=== PATIENT | male | born 1990 | race Caucasian/White ===

== ENCOUNTER 2017-04-06 17:48 | Emergency (ER) | payer SELFPAY ==
[2017-04-06 17:50] VITALS: BMI 32.1
[2017-04-06 17:52] VITALS: BP 158/88; PULSE 81; RESP 19; TEMP 98; O2SAT 100
--- NOTE | 2017-04-06 17:59 | ED PDOC ---
Arrival/HPI - General Chief Complaint: Trauma Time Seen by Provider: 04/06/17 17:53 Historian: Patient - History of Present Illness Narrative History of Present Illness (Text): 04/06/17 17:56 27yo male present with complaint of left shoulder and knee pain s/p trauma over a week ago. States he fell, while playing soccer over a week ago and injured his knee and shoulder. states he took tylnol without relieve. Came to ED for the persistent pain. Denies any other complaint. Past Medical History - Provider Review Nursing Documentation Reviewed: Yes - Infectious Disease Hx of Infectious Diseases: None - Tetanus Immunization Tetanus Immunization: Up to Date - Past Medical History Past Medical History: No Previous - Psychiatric Hx Depression: No Hx Emotional Abuse: No Hx Physical Abuse: No Hx Substance Use: No - Past Surgical History Past Surgical History: No Previous - Surgical History Hx Appendectomy: Yes - Anesthesia Hx Anesthesia: Yes Hx Anesthesia Reactions: No - Suicidal Assessment Feels Threatened In Home Enviroment: No Family/Social History - Physician Review Nursing Documentation Reviewed: Yes Family/Social History: Unknown Family HX Smoking Status: Never Smoked Hx Alcohol Use: No Hx Substance Use: No Hx Substance Use Treatment: No Allergies/Home Meds Allergies/Adverse Reactions: Allergies No Known Allergies Allergy (Verified 04/06/17 17:50) Review of Systems - Physician Review All systems were reviewed & negative as marked: Yes - Review of Systems Constitutional: Normal Eyes: Normal ENT: Normal Respiratory: Normal Cardiovascular: Normal Gastrointestinal: Normal Genitourinary Male: Normal Musculoskeletal: Arthralgias (LEft shoulder and knee) Skin: Normal Neurological: Normal Endocrine: Normal Hemo/Lymphatic: Normal Psychiatric: Normal Physical Exam Vital Signs Reviewed: Yes Vital Signs Temp Pulse Resp BP Pulse Ox 04/06/17 17:51 98.0 F 81 19 158/88 H 100 Temperature: Afebrile Blood Pressure: Normal Pulse: Regular Respiratory Rate: Normal Appearance: Positive for: Well-Appearing, Non-Toxic, Comfortable Pain Distress: None Mental Status: Positive for: Alert and Oriented X 3 - Systems Exam Head: Present: Atraumatic, Normocephalic Pupils: Present: PERRL Extroacular Muscles: Present: EOMI Conjunctiva: Present: Normal Mouth: Present: Moist Mucous Membranes Neck: Present: Normal Range of Motion Respiratory/Chest: Present: Clear to Auscultation, Good Air Exchange. No: Respiratory Distress, Accessory Muscle Use Cardiovascular: Present: Regular Rate and Rhythm, Normal S1, S2. No: Murmurs Abdomen: Present: Normal Bowel Sounds. No: Tenderness, Distention, Peritoneal Signs Back: Present: Normal Inspection Upper Extremity: Present: Normal ROM (With pain on full abduction of left shoulder up to 120degree), Tenderness (Proximal left shoulder and medial aspect of left knee), Neurovascularly Intact. No: Cyanosis, Edema, Swelling, Erythema , Temperature Abnormalties, Capillary Refill < 2s, Deformity Lower Extremity: Present: Normal Inspection. No: Edema Neurological: Present: GCS=15, CN II-XII Intact, Speech Normal Skin: Present: Warm, Dry, Normal Color. No: Rashes Psychiatric: Present: Alert, Oriented x 3, Normal Insight, Normal Concentration Medical Decision Making ED Course and Treatment: 04/06/17 18:37 Left knee/shoulder xray - No acute finding Result was DW the pt. He was ambulatory with steady gait in ED. Referred to ortho. Rx of Ibuprofen given. TRT ED for any new symptoms. - RAD Interpretation Radiology Orders: 04/06/17 17:53 KNEE WITH PATELLA LEFT 3 VIEW [RAD] Stat 04/06/17 17:56 SHOULDER LEFT [RAD] Stat - Medication Orders Current Medication Orders: Discontinued Medications Ketorolac Tromethamine (Toradol) 60 mg IM STAT STA Stop: 04/06/17 17:57 Last Admin: 04/06/17 18:08 Dose: 60 mg Disposition/Present on Arrival - Present on Arrival Any Indicators Present on Arrival: No History of DVT/PE: No History of Uncontrolled Diabetes: No Urinary Catheter: No History of Decub. Ulcer: No History Surgical Site Infection Following: None - Disposition Have Diagnosis and Disposition been Completed?: Yes Diagnosis: Knee sprain, Shoulder pain Disposition: HOME/ ROUTINE Disposition Time: 18:35 Patient Plan: Discharge Patient Problems: Current Active Problems Problem Status Onset Knee sprain Acute Shoulder pain Acute Condition: STABLE Discharge Instructions (ExitCare): Knee Sprain (ED), Shoulder Sprain (ED) Additional Instructions: Follow up with orthopedist Return to ED for any new symptoms Prescriptions: Ibuprofen [Motrin Tab] 600 mg PO Q6 #20 tab Referrals: Herman Tesfaye MD [Staff Provider] - Follow up with primary
--- NOTE | 2017-04-07 10:24 | RAD ---
PROCEDURE: Left Knee Radiographs. HISTORY: Pain. COMPARISON: None. FINDINGS: BONES: Normal. No fracture. JOINTS: Normal. No osteoarthritis. JOINT EFFUSION: None. OTHER FINDINGS: None. IMPRESSION: Normal radiographs of the left knee.
--- NOTE | 2017-04-07 10:49 | RAD ---
PROCEDURE: Radiographs of the Left Shoulder HISTORY: shoulder pain s/p trauma COMPARISON: No prior. FINDINGS: BONES: Normal. No fracture. JOINTS: Normal. Glenohumeral and acromioclavicular joints preserved. No osteoarthritis. SOFT TISSUES: Normal. OTHER FINDINGS: None. IMPRESSION: Normal radiographs of the left shoulder.
== END 2017-04-06 18:45 | disposition home or self-care (01) ==
LOC: ED 17:48
DX: S83.92XA Sprain of unspecified site of left knee, initial encounter (principal); W18.39XA Other fall on same level, initial encounter; Y93.66 Activity, soccer; Y92.39 Other specified sports and athletic area as the place of occurrence of the external cause; M25.512 Pain in left shoulder
CPT/HCPCS: 73030; 73562; 96372; 99284; J1885

== ENCOUNTER 2019-02-12 10:49 | Emergency (ER) | payer MEDICAID ==
[2019-02-12 10:50] VITALS: BMI 32.1
--- NOTE | 2019-02-12 12:32 | ED PDOC ---
Arrival/HPI - General Chief Complaint: Abdominal Pain Time Seen by Provider: 02/12/19 12:03 Historian: Patient - History of Present Illness Narrative History of Present Illness (Text): 02/12/19 12:27 29 year old male, whose past medical history includes appendectomy, who presents to the ED for right upper abdominal pain since Saturday. Patient reports his appendectomy was 5-6 years ago. Patient notes associated right shoulder pain, but denies any chest pain, shortness of breath, headache, fever, chills, cough, nausea, vomiting, diarrhea, dizziness or lightheadedness or any other complaints. Time/Duration: 24 hours Symptom Onset: Gradual Symptom Course: Unchanged Activities at Onset: Light Context: Home Past Medical History - Provider Review Nursing Documentation Reviewed: Yes - Infectious Disease Hx of Infectious Diseases: None - Tetanus Immunization Tetanus Immunization: Up to Date - Past Medical History Past Medical History: No Previous - Psychiatric Hx Depression: No Hx Emotional Abuse: No Hx Physical Abuse: No Hx Substance Use: No - Past Surgical History Past Surgical History: No Previous - Surgical History Hx Appendectomy: Yes - Anesthesia Hx Anesthesia: Yes Hx Anesthesia Reactions: No Hx Malignant Hyperthermia: No - Suicidal Assessment Feels Threatened In Home Enviroment: No Family/Social History - Physician Review Nursing Documentation Reviewed: Yes Family/Social History: Unknown Family HX Smoking Status: Never Smoked Hx Alcohol Use: No Hx Substance Use: No Hx Substance Use Treatment: No Allergies/Home Meds Allergies/Adverse Reactions: Allergies No Known Allergies Allergy (Verified 02/12/19 11:36) Home Medications: Home Meds Medication Instructions Recorded Confirmed No Known Home Med 02/12/19 02/12/19 Review of Systems - Physician Review All systems were reviewed & negative as marked: Yes - Review of Systems Constitutional: absent: Fevers Eyes: absent: Vision Changes ENT: absent: Hearing Changes, Sore Throat, Rhinorrhea Respiratory: absent: SOB, Cough Cardiovascular: absent: Chest Pain Gastrointestinal: Abdominal Pain. absent: Diarrhea, Nausea, Vomiting Genitourinary Male: absent: Dysuria, Hematuria, Urinary Output Changes Musculoskeletal: Other (Right shoulder pain). absent: Back Pain Skin: absent: Rash, Pruritis, Skin Lesions Neurological: absent: Headache, Dizziness Endocrine: absent: Diaphoresis Hemo/Lymphatic: absent: Adenopathy Psychiatric: absent: Anxiety, Depression Physical Exam - Physical Exam Narrative Physical Exam (Text): 02/12/19 12:33 Gen: VS reviewed, alert, well developed, well nourished, nontoxic, mild distress ENT: normal pharynx Eye: EOMI, PERRL Neck: no JVD, supple, no adenopathy CV: regular rate, regular rhythm, no rubs, no murmur, no gallops, S1, S2, pulses, equal and strong Pulm: no distress, clear to auscultation, no wheeze, no rhonchi, breath sounds equal, no rales Abd: soft, mild RUQ tenderness, no guarding, no rebound, no rigidity, normal bowel sounds Ext: no edema Skin: good color, no rash, no cyanosis Psych: responds appropriately to questions, normal affect Neuro: oriented x 3, CN2-12 intact grossly, motor intact, sensation intact Vital Signs Temp Pulse Resp BP Pulse Ox 02/12/19 11:33 98.9 F 65 18 141/90 98 Temperature: Afebrile Blood Pressure: Normal Pulse: Regular Respiratory Rate: Normal Appearance: Positive for: Well-Appearing, Non-Toxic, Comfortable Pain Distress: Mild Mental Status: Positive for: Alert and Oriented X 3 Medical Decision Making ED Course and Treatment: 02/12/19 12:34 Impression: 29 year old male who presents to the ED with right abdominal pain. Plan: -- EKG -- Labs -- IV Fluids -- Abdominal US -- Reassess and disposition Progress Notes: 02/12/19 15:37 patient feels well and ready to go home. patient states that he has been eating greasy meats for the past several days but no constipation, no bloody stools, no vomiting. ddx including but not limited pud, food intolerance, unlikely ACS. patient remained well throughout ED course and it was discussed to follow up with GI. patient understands and agreeable to plan and will make follow up. - RAD Interpretation Narrative RAD Interpretations (Text): 02/12/19 14:06 US of Gallbladder reviewed by radiologist, shows: FINDINGS: LIVER: Measures 18.1 cm in length. Diffusely increased echogenicity of the liver parenchyma. Consistent with mild diffuse fatty infiltration. No focal mass. No biliary dilatation. Smooth contour. Normal hepatopetal portal venous flow. GALLBLADDER: Unremarkable. No gallstones. COMMON BILE DUCT: Measures 6 mm. No stones. No dilatation. PANCREAS: Poorly visualized RIGHT KIDNEY: Measures 11.3 cm in length. Normal echogenicity. No calculus, mass, or hydronephrosis. AORTA: No aneurysmal dilatation. IVC: Unremarkable. OTHER FINDINGS: None . IMPRESSION: Mild fatty infiltration of the liver. No evidence of cholelithiasis or cholecystitis. 02/12/19 15:01 CT of Abdomen/Pelvis reviewed by radiologist, shows: FINDINGS: LOWER THORAX: Unremarkable. LIVER: Unremarkable. No gross lesion or ductal dilatation. GALLBLADDER AND BILE DUCTS: Unremarkable. PANCREAS: Unremarkable. No gross lesion or ductal dilatation. SPLEEN: Unremarkable. ADRENALS: Unremarkable. No mass. KIDNEYS AND URETERS: Unremarkable. No hydronephrosis. No solid mass. VASCULATURE: Unremarkable. No aortic aneurysm. No aortic atherosclerotic calcification or mural plaque present. BOWEL: Mild diverticulosis of the transverse colon. No evidence of diverticulitis. No bowel obstruction. No other abnormal bowel loops are identified. APPENDIX: Status post appendectomy. Postsurgical changes at cecal apex. PERITONEUM: Unremarkable. No free fluid. No free air. LYMPH NODES: Unremarkable. No enlarged lymph nodes. BLADDER: Unremarkable. REPRODUCTIVE: Normal prostate BONES: No acute fracture. OTHER FINDINGS: None. IMPRESSION: No acute abnormality. Radiology Orders: 02/12/19 12:19 GALLBLADDER & PANCREAS [US] Stat Stonemason Helper: Radiologist - EKG Interpretation EKG Interpretation (Text): 02/12/19 1233: ekg my read: nsr at 64 bpm, nml qrs, nml axis, no acute sttw abn Interpreted by ED Physician: Yes - Scribe Statement Russell alvarado with Ja[facility]. All medical record entries made by the Scribe were at my direction and personally dictated by me. I have reviewed the chart and agree that the record accurately reflects my personal performance of the history, physical exam, medical decision making, and the department course for this patient. I have also personally directed, reviewed, and agree with the discharge instructions and disposition. Disposition/Present on Arrival - Present on Arrival Any Indicators Present on Arrival: No History of DVT/PE: No History of Uncontrolled Diabetes: No Urinary Catheter: No History of Decub. Ulcer: No History Surgical Site Infection Following: None - Disposition Have Diagnosis and Disposition been Completed?: Yes Diagnosis: Abdominal pain Disposition: HOME/ ROUTINE Disposition Time: 15:41 Patient Plan: Discharge Condition: STABLE Discharge Instructions (ExitCare): Acute Abdomen (Belly Pain) Additional Instructions: return for any new or worsening symptoms. follow up with a wire dropper. Referrals: FAMILY PROVIDER,NO [Primary Care Provider] - Follow up with primary Musa Dorman DO [Staff Provider] - Follow up with primary Meredith Gentile MD [Medical Doctor] - Follow up with primary [facility] [Outside] - Follow up with primary Bhargavi Horvath MD [Medical Doctor] - Follow up with primary Forms: [id number] ([place]ovenian), WORK NOTE
[2019-02-12 12:57] LABS: BASO # 0.02 K/mm3 (0.0-2.0); BASO % 0.3 % (0.0-3.0); EOS % 0.5 % (1.5-5.0); HEMOGLOBIN 16.3 g/dL (14.0-18.0); LYMPH # 1.9 (1.2-3.4); LYMPH % 28.6 % (22.0-35.0); MEAN CELL VOLUME 86.8 fl (80.0-105.0); MEAN CORPUSCULAR HEMOGLOBIN 30.2 pg (25.0-35.0); MEAN CORPUSCULAR HGB CONC 34.8 g/dl (31.0-37.0); MEAN PLATELET VOLUME 10.4 fl (7.0-11.0); MONO # 0.4 (0.1-0.6); MONO % 6.7 % (1.0-6.0); RBC 5.39 10^6/uL (3.5-6.1); RED CELL DISTRIBUTION WIDTH 12.9 % (11.5-14.5); WHITE BLOOD COUNT 6.5 10^3/uL (4.5-11.0)
[2019-02-12 13:06] LABS: ALB/GLOB RATIO 1.2 (1.1-1.8); ALBUMIN 4.7 g/dL (3.0-4.8); ALT/SGPT 76 U/L (7-56); AST/SGOT 39 U/L (17-59); BLOOD UREA NITROGEN 16 mg/dL (7-21); CALCIUM 9.9 mg/dL (8.4-10.5); GFR NON-AFRICAN AMERICAN > 60; LIPASE 55 U/L (23-300)
--- NOTE | 2019-02-12 13:35 | US ---
Date of service: 02/12/2019 HISTORY: pain, ?gallstones COMPARISON: None. TECHNIQUE: Sonographic evaluation of the right upper quadrant of the abdomen. FINDINGS: LIVER: Measures 18.1 cm in length. Diffusely increased echogenicity of the liver parenchyma. Consistent with mild diffuse fatty infiltration. No focal mass. No biliary dilatation. Smooth contour. Normal hepatopetal portal venous flow. GALLBLADDER: Unremarkable. No gallstones. COMMON BILE DUCT: Measures 6 mm. No stones. No dilatation. PANCREAS: Poorly visualized RIGHT KIDNEY: Measures 11.3 cm in length. Normal echogenicity. No calculus, mass, or hydronephrosis. AORTA: No aneurysmal dilatation. IVC: Unremarkable. OTHER FINDINGS: None . IMPRESSION: Mild fatty infiltration of the liver. No evidence of cholelithiasis or cholecystitis.
[2019-02-12] MEDS ORDERED: Iodixanol 320 mg/ml 150 ml Bottle IV ONE (14:04)
--- NOTE | 2019-02-12 14:58 | CT ---
Date of service: 02/12/2019 PROCEDURE: CT Abdomen and Pelvis with contrast HISTORY: right abd pain, s/p appy COMPARISON: None. TECHNIQUE: Contrast dose: 150 mL Omnipaque 350 Radiation dose: Total exam DLP = 1158.29 mGy-cm. This CT exam was performed using one or more of the following dose reduction techniques: Automated exposure control, adjustment of the mA and/or kV according to patient size, and/or use of iterative reconstruction technique. FINDINGS: LOWER THORAX: Unremarkable. LIVER: Unremarkable. No gross lesion or ductal dilatation. GALLBLADDER AND BILE DUCTS: Unremarkable. PANCREAS: Unremarkable. No gross lesion or ductal dilatation. SPLEEN: Unremarkable. ADRENALS: Unremarkable. No mass. KIDNEYS AND URETERS: Unremarkable. No hydronephrosis. No solid mass. VASCULATURE: Unremarkable. No aortic aneurysm. No aortic atherosclerotic calcification or mural plaque present. BOWEL: Mild diverticulosis of the transverse colon. No evidence of diverticulitis. No bowel obstruction. No other abnormal bowel loops are identified. APPENDIX: Status post appendectomy. Postsurgical changes at cecal apex. PERITONEUM: Unremarkable. No free fluid. No free air. LYMPH NODES: Unremarkable. No enlarged lymph nodes. BLADDER: Unremarkable. REPRODUCTIVE: Normal prostate BONES: No acute fracture. OTHER FINDINGS: None. IMPRESSION: No acute abnormality.
[2019-02-12 15:57] VITALS: BP 130/72; PULSE 68; RESP 16; TEMP 97.9; O2SAT 99
--- NOTE | 2019-02-12 16:03 | CARD ---
APPROVED REPORT Date of service: 02/12/2019 EKG Measurement Heart [id number] <Conclusion> Normal sinus rhythm with sinus arrhythmia Nonspecific ST abnormality
== END 2019-02-12 15:55 | disposition home or self-care (01) ==
LOC: ED 10:49
DX: R10.9 Unspecified abdominal pain (principal)
CPT/HCPCS: 74177; 76705; 80053; 83690; 85025; 93005; 99283; Q9967